=== PATIENT | female | born 1995 | race Caucasian/White ===

== ENCOUNTER 2017-11-11 09:15 | Emergency (ER) | payer OTHER ==
[~2017-11-11] VITALS: Ht 154.9 cm; Wt 86.2 kg
[2017-11-11 09:28] VITALS: BP 117/80
[2017-11-11] MEDS ORDERED: MECLIZINE 25 MG TAB PO ONE (09:40)
[2017-11-11 11:21] VITALS: BP 124/77
== END 2017-11-11 11:21 | disposition home or self-care (01) ==
LOC: MED 09:15
DX: R42 Dizziness and giddiness (principal)
CPT/HCPCS: 81002; 81025; 99283; J8597